=== PATIENT | male | born 1955 | race Caucasian/White ===

== ENCOUNTER 2018-02-06 08:22 | Emergency (ER) | payer BC ==
[~2018-02-06] VITALS: Ht 190.5 cm; Wt 102.8 kg
[2018-02-06] MEDS ORDERED: ASPI-1265 PO (08:48)
[2018-02-06 08:56] LABS: BASOPHILS % (AUTO) 0.5 % (0-1); EOSINOPHILS # (AUTO) 0.1 X10'3 (0-0.9); EOSINOPHILS % (AUTO) 1.3 % (0-6); HEMATOCRIT 45.7 % (42.0-52.0); HEMOGLOBIN 15.8 g/dl (14.0-17.9); LYMPHOCYTES # (AUTO) 1.6 X10'3 (1.1-4.8); LYMPHOCYTES % (AUTO) 23.8 % (21-51); MEAN CORPUSCULAR HEMOGLOBIN 30.9 PG (27.0-31.0); MEAN CORPUSCULAR HGB CONC 34.6 % (33.0-36.5); MEAN CORPUSCULAR VOLUME 89.2 FL (78-98); MEAN PLATELET VOLUME 7.2 FL (7.4-10.4); MONOCYTES # (AUTO) 0.4 X10'3 (0-0.9); MONOCYTES % (AUTO) 6.3 % (2-12); NEUTROPHILS # (AUTO) 4.7 X10'3 (1.8-7.7); NEUTROPHILS % (AUTO) 68.1 % (42-75); PLATELET COUNT 192 X10'3 (140-440); RED BLOOD COUNT 5.12 X10'6 (4.70-6.10); RED CELL DISTRIBUTION WIDTH 13.1 % (11.5-14.5); WHITE BLOOD COUNT 6.9 X10'3 (4.5-11.0)
[2018-02-06] MEDS ORDERED: potassium Cl 20 mEq SR tablet PO STA (08:56)
[2018-02-06] MEDS ORDERED: normal saline 1000ML IV soln IVB ONE (09:00)
[2018-02-06] MEDS ORDERED: diltiazem 5mg/ml 5ml inj. IV ONE (09:00)
[2018-02-06] MEDS ORDERED: diltiazem 30mg tablet PO ONE (09:00)
[2018-02-06] MEDS ORDERED: LORazepam 2 mg/ml vial IV ONE (09:05)
[2018-02-06 09:06] LABS: PARTIAL THROMBOPLASTIN TIME 28 SECONDS (22-32); PROTHROMBIN TIME 10.6 SECONDS (9.0-12.0)
[2018-02-06 09:11] LABS: ALANINE AMINOTRANSFERASE 29 U/L (12-78); ALBUMIN 3.9 G/DL (3.4-5.0); ALBUMIN/GLOBULIN RATIO 1.1 (1.1-1.5); ALKALINE PHOSPHATASE 69 IU/L (46-116); ANION GAP 8 (8-16); ASPARTATE AMINO TRANSFERASE 16 U/L (10-37); BILIRUBIN,TOTAL 0.6 MG/DL (0.1-1.0); BLOOD UREA NITROGEN 15 MG/DL (7-18); BUN/CREATININE RATIO 17.2 (5.4-32.0); CHLORIDE 105 MMOL/L (99-107); CREATININE 0.87 MG/DL (0.60-1.10); GLUCOSE 112 MG/DL (70-104); POTASSIUM 3.8 MMOL/L (3.5-5.1); SODIUM 140 MMOL/L (135-145); TOTAL CARBON DIOXIDE 27.4 MMOL/L (24-32); TOTAL PROTEIN 7.3 G/DL (6.4-8.2); eGFR 89 ML/MIN
[2018-02-06] MEDS: magnesium 1gm/100ml D5W IVPB 100 ML IV SCH ×2 (09:33→10:03)
[2018-02-06] MEDS ORDERED: etomidate 2mg/ml inj. IV ONE (11:40)
[2018-02-06 13:05] VITALS: BP 116/67
== END 2018-02-06 13:07 | disposition home or self-care (01) ==
LOC: ER 08:23
DX: I48.91 Unspecified atrial fibrillation (principal); Z79.82 Long term (current) use of aspirin
CPT/HCPCS: 36415; 71045; 80053; 83880; 84484; 85025; 85610; 85730; 92960; 93005; 94760; 96365; 96366; 96375; 99152; 99285; J2060; J3490